=== PATIENT | female | born 1990 | race Caucasian/White ===

== ENCOUNTER 2022-02-21 16:36 | Emergency (ER) | payer OTHER ==
[~2022-02-21] VITALS: Ht 172.7 cm; Wt 68.0 kg
[2022-02-21 16:55] VITALS: BP 122/88
--- NOTE | 2022-02-21 16:58 | NUR ---
WALKED IN C/O RIGHT SIDED FLANK PRESSURE-LIKE PAIN RADIATING TO ABD ACCOMPANIED BY CHEST PAIN. DENIES ANY RECENT INJURY. DENIES DIZZINESS OR NVD. AFEBRILE. DENIES ANY CARDIAC HX. DENIES ANY URINARY S/SX. VITALS STABLE, ON MONITOR, URINE COLLECTED. AAO4, AMBULATORY PMH: HYPOTHYROIDISIM NKA.
[2022-02-21 17:27] LABS: APPEARANCE,URINE SL CLOUDY (CLEAR); BILIRUBIN,URINE NEGATIVE (NEGATIVE); BLOOD, URINE NEGATIVE (NEGATIVE); COLOR,URINE YELLOW (YELLOW); LEUKOCYTE ESTERASE ,URINE 2+ (NEGATIVE); NITRITE, URINE NEGATIVE (NEGATIVE); UGLUCOSE NEGATIVE (NEGATIVE)
[2022-02-21 17:39] LABS: OTHER CASTS, URINE None Seen /LPF (None Seen); RBC,URINE 0-5 /HPF (0-5)
[2022-02-21] MEDS ORDERED: CEPH-588 PO (18:16)
[2022-02-21] MEDS ORDERED: cephALEXin 500 MG CAP PO ONE (18:20)
[2022-02-21 18:31] VITALS: BP 122/88
--- NOTE | 2022-02-21 18:31 | NUR ---
Patient discharged with v/s stable. Written and verbal after care instructions ABOUT URIANRY TRACT INFECTION given and explained. Patient alert, oriented and verbalized understanding of instructions. Ambulatory with steady gait. All questions addressed prior to discharge. ID band removed. Patient advised to follow up with PMD. Rx of KEFLEX given. Patient educated on indication of medication including possible reaction and side effects. Opportunity to ask questions provided and answered.
== END 2022-02-21 18:31 | disposition home or self-care (01) ==
LOC: MED 16:36
DX: N39.0 Urinary tract infection, site not specified (principal); E03.9 Hypothyroidism, unspecified
CPT/HCPCS: 81001; 81025; 87086; 93005; 99284